=== PATIENT | male | born 1990 | race Caucasian/White ===

== ENCOUNTER 2017-07-10 23:40 | Emergency (ER) | payer BC ==
[~2017-07-10] VITALS: Ht 172.7 cm; Wt 94.0 kg
[2017-07-10 23:45] VITALS: Ht 172.7 cm; Wt 94.0 kg
[2017-07-11] MEDS ORDERED: LORAZEPAM 1 MG TAB PO ONE (00:30)
--- NOTE | 2017-07-11 01:38 | RADRPT ---
PROCEDURE: XR Chest. CLINICAL INDICATION: Chest pain and dyspnea. TECHNIQUE: Single frontal view of the chest. COMPARISON: None. FINDINGS: The cardiomediastinal silhouette is within normal limits. The lungs are clear. No signs of pleural f luid or pneumothorax are seen. The osseous structures and soft tissues are unremarkable. IMPRESSION: No evidence for active cardiopulmonary disease. RPTAT: [facility] Physician Harpreet Date Time Electronically viewed and signed by Nick Barton Physician on 07/11/2017 01:38 RS/
[2017-07-11] MEDS ORDERED: LORA-441 PO (01:46)
--- NOTE | 2017-07-11 01:51 | ERD ---
ER Documentation Chief Complaint Date/Time DATE: 07/11/17 TIME: 01:47 Chief Complaint Pt c/o SOB x 1 week, pt smiling and conversing with ease HPI This is a 26-year-old male presents to the ER with chest pressure, palpitations and shortness of breath that started last Thursday evening. Patient states that his symptoms are intermittent. Chest pain, shortness of breath is nonexertional. He denies any recent cough or cold symptoms. He denies any fevers or chills. He denies any recent travel. He denies any leg pain, leg redness or swelling. Patient did have a history of asthma as a child, however has not had asthmatic episode in a long time. Patient denies any drug use. He does admit to alcohol use. ROS 12 point review of systems was done, all negative except per HPI. Medications Home Meds Active Scripts Lorazepam* (Ativan*) 0.5 Mg Tablet, 0.5 MG PO Q8, #10 TAB Prov:FEDE GAN Lencho 07/11/17 Allergies Allergies: Coded Allergies: No Known Allergy (Unverified , 07/10/17) PMhx/Soc Medical and Surgical Hx: pt denies Medical Hx, pt denies Surgical Hx Physical Exam Vitals Vital Signs Date Time Temp Pulse Resp B/P Pulse Ox O2 Delivery O2 Flow Rate FiO2 07/10/17 23:45 98.3 112 16 165/93 100 Physical Exam GENERAL: The patient is well developed and appropriate for usual state of health , in no apparent distress. HEENT: Atraumatic. Conjunctivae are pink. Pupils equal, round, and reactive to light. Extraocular muscles are grossly intact. Bilateral tympanic membranes are clear with no evidence of erythema, effusion or dulling of the light reflex. The oropharynx is clear with no erythema or exudates. NECK: C-spine is soft and supple. There is no cervical lymphadenopathy. CHEST: Clear to auscultation bilaterally. There are no rales, wheezes or rhonchi. HEART: Regular rate and rhythm. No murmurs, clicks, rubs or gallops. ABDOMEN: Soft, nontender and nondistended. Good bowel sounds. No rebound or guarding. No gross peritonitis. No gross organomegaly or masses. No Velázquez sign or McBurney point tenderness. No pulsatile masses. BACK: No midline or flank tenderness. EXTREMITIES: Equal pulses bilaterally. There is no peripheral clubbing, cyanosis or edema. No focal swelling or erythema. Full range of motion. Grossly neurovascularly intact. NEURO: Alert and oriented. Cranial nerves II through XII are intact. Motor strength in all 4 extremities with 5/5 strength. Sensation grossly intact. Normal speech and gait. SKIN: There is no apparent rash or petechia. The skin is warm and dry. Results 24 hrs Current Medications Medications (Trade) Dose Ordered Sig/Tiny Route PRN Reason Start Time Stop Time Status Last Admin Dose Admin Lorazepam (Ativan) 1 mg ONCE ONCE PO 07/11/17 00:30 07/11/17 00:31 DC 07/11/17 00:47 Procedures/MDM EKG was taken [address] elevation no T-wave inversion this EKG was read by Dr. Delarosa. Differential diagnosis includes but is not limited to; STEMI, dissection, pneumothorax, PE, esophageal rupture, tamponade, pneumonia, pericarditis, GERD, musculoskeletal, endocarditis, anxiety. This time etiology for patient's palpitations, chest pain, shortness of breath of unknown etiology, however suspicion for acute cardiac etiology is low. Suspicion for pulmonary embolism is low. Patient's pulse was elevated upon intake, however when he did EKG heart rate was within normal limits. Patient does not need any PERC criteria. Patient is smiling in the exam room and able to complete sentences with ease. Will be sent home lorazepam. He is to follow-up with his primary care doctor within 1-2 days or return to ER sooner if symptoms worsen. My medical decision making sure with the patient understands and agrees with plan. Departure Diagnosis: Primary Impression: Palpitations Additional Impression: Shortness of breath Condition: Stable Patient Instructions: Palpitations Additional Instructions: Call your primary care doctor TOMORROW for an appointment during the next 1-2 days.See the doctor sooner or return here if your condition worsens before your appointment time. FEDE GAN Jul 11, 2017 01:51
== END 2017-07-11 01:57 | disposition home or self-care (01) ==
LOC: FTE 23:40
DX: R00.2 Palpitations (principal)
CPT/HCPCS: 71010; 93005